=== PATIENT | female | born 1980 | race Two or more races ===

== ENCOUNTER 2017-04-29 00:26 | Inpatient (IN) | payer OTHER ==
[~2017-04-29] VITALS: Ht 160 cm; Wt 71.7 kg
[~2017-04-29 00:26] MED LIST: CEPH-570 PO; IBUP-1955 PO; PHEN-705 PO
[2017-04-29 03:00] VITALS: BP 90/54
--- NOTE | 2017-04-29 03:00 | NUR ---
MS RN NOTE: RECEIVED PATIENT FROM [facility] [address] [facility], NO ACUTE DISTRESS NOTED. BREATHING EVEN AND UNLABORED, NO SOB NOTED. IV TO LAC #[address] REVIEWED HOME MEDICATIONS. ORIENTED PATIENT TO ROOM AND USE OF CALL LIGHT. BED LOCKED AND IN LOWEST POSITION, CALL LIGHT IN REACH. WILL CONTINUE TO MONITOR. SEXUAL [employer]AULT SOCIAL WORKER MD CALLED AND INFORMED THAT PATIENT IS ON FLOOR. WILL CONTINUE TO MONITOR.
[2017-04-29] MEDS ORDERED: ZOLPIDEM TARTRATE 5 MG TABLET PO PRN (04:00)
[2017-04-29] MEDS ORDERED: MORPHINE SULFATE INJ 2 MG/ML DISP.SYRIN IV PRN (04:00)
[2017-04-29] MEDS ORDERED: Z GUARD REMEDY 2 OZ OINT TP PRN ×2 (04:00→18:30)
[2017-04-29] MEDS ORDERED: MAGNESIUM HYDROXIDE 30 ML UDC PO PRN (04:00)
[2017-04-29] MEDS ORDERED: HYDROCODONE/APAP 5/325MG 1 EACH TABLET ONE (04:30)
[2017-04-29] MEDS: HYDROCODONE/APAP 5/325MG 1 EACH TABLET PO PRN ×2 (04:36→20:20)
--- NOTE | 2017-04-29 04:45 | NUR ---
MS RN NOTE: PATIENT COMPLAINS OF PAIN TO VAGINAL AREA 11/08, NORCO 5/325MG 1 TAB ORAL GIVEN PER MD ORDER. WILL CONTINUE TO MONITOR.
--- NOTE | 2017-04-29 06:20 | NUR ---
MS RN NOTE: PATIENT RESTING IN BED, NO ACUTE DISTRESS NOTED. BREATHING EVEN AND UNLABORED, NO SOB NOTED. IV TO LAC #[address] BED LOCKED AND IN LOWEST POSITION, CALL LIGHT IN REACH. WILL ENDORSE TO DAY NURSE TO CONTINUE WITH PLAN OF CARE.
[2017-04-29 06:43] LABS: BASOPHILS % (AUTO) 0.1 % (0.0-2.0); EOSINOPHILS # (AUTO) 0.1 /CMM (0.0-0.7); EOSINOPHILS % (AUTO) 0.7 % (0.0-6.0); HEMATOCRIT 38 % (33-45); HEMOGLOBIN 12.8 g/dL (11.5-14.8); LYMPHOCYTES # (AUTO) 0.8 /CMM (0.8-4.8); LYMPHOCYTES % (AUTO) 3.7 % (20.0-44.0); MEAN CORPUSCULAR HEMOGLOBIN 31 PG (26.0-33.0); MEAN CORPUSCULAR HGB CONC 34 g/dl (31.0-36.0); MEAN CORPUSCULAR VOLUME 92 fL (82-100); MONOCYTES # (AUTO) 0.4 /CMM (0.1-1.30); NEUTROPHILS # (AUTO) 19.1 /CMM (1.8-8.9); NEUTROPHILS % (AUTO) 93.5 % (43.0-81.0); PLATELET COUNT (AUTO) 250 /CMM (150-450); RDW COEFFICIENT OF VARIATION 11.6 (11.5-15.0); RED BLOOD CELL COUNT(AUTO) 4.08 MIL/uL (4.0-5.2); WHITE BLOOD COUNT (AUTO) 20.4 K/uL (4.3-11.0)
[2017-04-29 07:10] LABS: CALCIUM, SERUM 8.5 mg/dL (8.5-10.1); CREATININE 0.8 mg/dL (0.6-1.3); MAGNESIUM 1.8 mg/dL (1.8-2.4); PHOSPHORUS 3.2 mg/dL (2.5-4.9)
[2017-04-29 07:19] LABS: POTASSIUM 3.3 mmol/L (3.5-5.1)
[2017-04-29 08:00] VITALS: BP 102/60
[2017-04-29] MEDS ORDERED: SULFAMETHOXAZOLE/TRIMETHOPRIM 10 ML in IV D5W 250 ML IV SCH (09:00)
[2017-04-29] MEDS: ACETAMINOPHEN 325 MG TABLET PO PRN (09:48)
[2017-04-29] MEDS: IV NS 0.9% 1,000 ML IV PRN ×2 (09:51→23:45)
[2017-04-29] MEDS: SULFAMETHOXAZOLE/TRIMETHOPRIM 10 ML in IV D5W 250 ML IV SCH ×3 (09:55→23:45)
--- NOTE | 2017-04-29 12:00 | NUR ---
RN NOTES RELAYED US TRANSVAGINAL RESULT TO DR. PANKAJ CASEY, ASKED IF MD WANTS TO ORDER SURGICAL CONSULT. PER MD, ORDER OB CONSULT WITH DR. VALENZUELA INSTEAD. ORDER NOTED AND CARRIED OUT.
[2017-04-29] MEDS ORDERED: POTASSIUM CHLORIDE 20 MEQ TAB.PRT.SR PO SCH (12:30)
[2017-04-29] MEDS: ONDANSETRON HCL/PF 4 MG/2 ML VIAL IVP PRN (13:45)
[2017-04-29] MEDS ORDERED: POTASSIUM CHLORIDE 20 MEQ TAB.PRT.SR PO ONE (14:00)
--- NOTE | 2017-04-29 14:01 | NUR ---
RN NOTES UNABLE TO PULL POTASSIUM CHLORIDE FROM OMNICELL D/T MEDICATION PAST DUE, RE-ORDERED.
[2017-04-29] MEDS ORDERED: ASPIRIN/ACETAMINOPHEN/CAFFEINE 1 EACH TABLET PO PRN (14:30)
[2017-04-29] MEDS ORDERED: MORPHINE SULFATE INJ 4 MG/ML DISP.SYRIN IV PRN (15:00)
[2017-04-29 15:49] LABS: BAND % (MANUAL) 6 % (0.0-5.0); EOSINOPHILS % (MANUAL) 1 % (0-4); LYMPHOCYTES % (MANUAL) 4 % (16-48); MONOCYTES % (MANUAL) 1 % (0-11.0); NEUTROPHILS % (MANUAL) 88 (42-76)
[2017-04-29 16:00] VITALS: BP 102/61
[2017-04-29] MEDS: IBUPROFEN 600 MG TABLET PO PRN (16:46)
--- NOTE | 2017-04-29 18:24 | NUR ---
RN NOTES PATIENT ALERT AND ORIENTED X4, ASSISTED TO RESTROOM, C/O BURNING PAIN WHEN VOIDING, PER PATIENT WHEN URINE TOUCHES THE LABIA. OFFERED Z-GUARD, PATIENT APPLIED BARRIER CREAM. REFUSED PAIN MEDICINE AT THIS TIME. PATIENT CONNECTED BACK TO IVF, ONGOING AND TOLERATING AT THIS TIME. FAMILY AT BEDSIDE. ALL NEEDS ATTENDED AND MET. CALL LIGHT WITHIN REACH, WILL ENDORSE TO VARITYPE OPERATOR FOR HANNAH.
--- NOTE | 2017-04-29 19:30 | NUR ---
MS RN NOTE: PATIENT RESTING IN BED, NO ACUTE DISTRESS NOTED. BREATHING EVEN AND UNLABORED, NO SOB NOTED. IV TO LAC #[address], INFUSING NS AT 75 ML/HR. BED LOCKED AND IN LOWEST POSITION, CALL LIGHT IN REACH. WILL CONTINUE TO MONITOR.
[2017-04-29 20:00] VITALS: BP 111/68
--- NOTE | 2017-04-29 20:30 | NUR ---
MS RN NOTE: PATIENT COMPLAINS OF PAIN TO VAGINAL AREA 11/08, NORCO 5/325MG 1 TAB ORAL GIVEN PER MD ORDER. WILL CONTINUE TO MONITOR.
--- NOTE | 2017-04-30 06:05 | NUR ---
MS RN NOTE: PATIENT RESTING IN BED, NO ACUTE DISTRESS NOTED. BREATHING EVEN AND UNLABORED, NO SOB NOTED. IV TO LAC #[address], INFUSING NS AT 75 ML/HR. BED LOCKED AND IN LOWEST POSITION, CALL LIGHT IN REACH. WILL ENDORSE TO DAY NURSE TO CONTINUE WITH PLAN OF CARE.
[2017-04-30 06:48] LABS: CALCIUM, SERUM 8.4 mg/dL (8.5-10.1); CREATININE 0.8 mg/dL (0.6-1.3); POTASSIUM 3.6 mmol/L (3.5-5.1)
[2017-04-30 06:49] LABS: CHOLESTEROL 138 mg/dL (<200); HDL CHOLESTEROL 51 mg/dL (40-60); LDL 72 mg/dL (0-99); TRIGLYCERIDES 89 mg/dL (30-150)
--- NOTE | 2017-04-30 07:30 | NUR ---
MS/RN Patient received Patient received from night nurse. Complaining of labia pain and nausea, unable to get comfortable. Pain medication offered, but patient reluctant to take. Requesting to hold of any medication at this time. Will continue to monitor and ensure safety.
[2017-04-30 08:00] VITALS: BP 91/56
[2017-04-30] MEDS: SULFAMETHOXAZOLE/TRIMETHOPRIM 10 ML in IV D5W 250 ML IV SCH ×3 (08:00→23:08)
[2017-04-30] MEDS: ONDANSETRON HCL/PF 4 MG/2 ML VIAL IVP PRN ×2 (09:03→18:07)
[2017-04-30 09:04] LABS: BASOPHILS % (AUTO) 0.3 % (0.0-2.0); EOSINOPHILS # (AUTO) 0.2 /CMM (0.0-0.7); EOSINOPHILS % (AUTO) 1.2 % (0.0-6.0); HEMATOCRIT 36 % (33-45); HEMOGLOBIN 12.4 g/dL (11.5-14.8); LYMPHOCYTES # (AUTO) 1.3 /CMM (0.8-4.8); LYMPHOCYTES % (AUTO) 8.7 % (20.0-44.0); MEAN CORPUSCULAR HEMOGLOBIN 31 PG (26.0-33.0); MEAN CORPUSCULAR HGB CONC 35 g/dl (31.0-36.0); MEAN CORPUSCULAR VOLUME 91 fL (82-100); MONOCYTES # (AUTO) 0.8 /CMM (0.1-1.30); MONOCYTES % (AUTO) 5.2 % (2.0-12.0); NEUTROPHILS # (AUTO) 12.9 /CMM (1.8-8.9); NEUTROPHILS % (AUTO) 84.6 % (43.0-81.0); PLATELET COUNT (AUTO) 219 /CMM (150-450); RDW COEFFICIENT OF VARIATION 11.6 (11.5-15.0); RED BLOOD CELL COUNT(AUTO) 3.96 MIL/uL (4.0-5.2); WHITE BLOOD COUNT (AUTO) 15.2 K/uL (4.3-11.0)
--- NOTE | 2017-04-30 11:00 | NUR ---
MS/RN S/B Shaan Neal No new orders, awaiting consult from Dr Groves.
[2017-04-30] MEDS: ACETAMINOPHEN 325 MG TABLET PO PRN (12:04)
--- NOTE | 2017-04-30 12:10 | NUR ---
MS/RN Dr Groves Call placed to Dr Groves, stated that she would be in to see patient following emergency surgery.
[2017-04-30] MEDS: HYDROCODONE/APAP 5/325MG 1 EACH TABLET PO PRN (13:49)
[2017-04-30] MEDS ORDERED: oxyCODONE/APAP (5/325 MG) 1 UDTAB TABLET PO PRN (14:30)
[2017-04-30] MEDS ORDERED: HYDROMORPHONE 1 MG/1 ML DISP.SYRIN IV PRN ×2 (15:00→15:30)
[2017-04-30] MEDS ORDERED: FEE PK DOSING 1 MIN EA MC ONE (15:22)
--- NOTE | 2017-04-30 15:30 | NUR ---
MS/RN S/P I&D S/P I&D labia abscess, small amount of pus drained. Patient to be encouraged to ambulate when comfortable to allow further pus to drain. To alternate warm compresses with ice packs.
--- NOTE | 2017-04-30 15:45 | NUR ---
MS/RN Orders New orders from Dr Groves: -gentamicin 80mg IV q8 hours -flagyl 250mg PO BID -dilaudid 1-2mg IV q2 hours -CBC
[2017-04-30 16:00] VITALS: BP 102/65
[2017-04-30] MEDS: IV NS 0.9% 1,000 ML IV PRN (16:41)
--- NOTE | 2017-04-30 17:30 | NUR ---
MS/RN Rounds Patient now more comfortable, states relief since I&D.
[2017-04-30] MEDS: IBUPROFEN 600 MG TABLET PO PRN (18:07)
[2017-04-30] MEDS: GENTAMICIN 80 MG in IV D5W 50 ML IV SCH (18:07)
--- NOTE | 2017-04-30 19:30 | NUR ---
RN NOTE; RECEIVED PT IN BED W/ FAMILY AT THE BED SIDE. BREATHING EVENLY. STATED PAIN IS MUCH BETTER . STILL W/ ON AND OFF NAUSEA. W/ MINIMAL DISCHARGES ON THE AREA. NEEDS ATTENDED. BED LOW MILAN. CALL LIGHT WITHIN REACH. WILL CONT TO MONITOR,
--- NOTE | 2017-04-30 19:30 | NUR ---
MS/RN End note No changes at this time, all needs attended, at bedside and updated as to plan of care. Will endorse to police shift commander.
[2017-04-30 20:00] VITALS: BP 111/69
[2017-04-30] MEDS: METRONIDAZOLE 250 MG TABLET PO SCH (21:35)
[2017-05-01] MEDS: GENTAMICIN 80 MG in IV D5W 50 ML IV SCH ×3 (00:26→16:18)
--- NOTE | 2017-05-01 05:44 | NUR ---
ASSISTED PT TO AMBULATE IN THE HALLWAY. TOLERATED WELL.
--- NOTE | 2017-05-01 06:29 | NUR ---
PT IN BED DOZING INTERMITTENTLY. BREATHING EVENLY. NO ACUTE EVENT DURING THE NIGHT, NO OBVIOUS DISCHARGES FROM THE LABIA. PAIN TOLERATED W/ NON-PHARMACOLOGICAL MEASURES, NO C/O N/V. NEEDS MET. CALL LIGHT WITHIN REACH. WILL CONT TO MONITOR , AND WILL ENDORSE TO AM SHIFT FOR HANNAH.
[2017-05-01 06:32] LABS: BASOPHILS % (AUTO) 0.2 % (0.0-2.0); EOSINOPHILS # (AUTO) 0.1 /CMM (0.0-0.7); EOSINOPHILS % (AUTO) 0.8 % (0.0-6.0); HEMATOCRIT 37 % (33-45); HEMOGLOBIN 12.4 g/dL (11.5-14.8); LYMPHOCYTES # (AUTO) 1.6 /CMM (0.8-4.8); LYMPHOCYTES % (AUTO) 11.4 % (20.0-44.0); MEAN CORPUSCULAR HEMOGLOBIN 31 PG (26.0-33.0); MEAN CORPUSCULAR HGB CONC 34 g/dl (31.0-36.0); MEAN CORPUSCULAR VOLUME 91 fL (82-100); MONOCYTES # (AUTO) 0.7 /CMM (0.1-1.30); MONOCYTES % (AUTO) 4.8 % (2.0-12.0); NEUTROPHILS # (AUTO) 11.3 /CMM (1.8-8.9); NEUTROPHILS % (AUTO) 82.8 % (43.0-81.0); PLATELET COUNT (AUTO) 259 /CMM (150-450); RDW COEFFICIENT OF VARIATION 11.4 (11.5-15.0); WHITE BLOOD COUNT (AUTO) 13.7 K/uL (4.3-11.0)
[2017-05-01 06:53] LABS: CALCIUM, SERUM 8.8 mg/dL (8.5-10.1); CREATININE 0.8 mg/dL (0.6-1.3); POTASSIUM 3.8 mmol/L (3.5-5.1)
--- NOTE | 2017-05-01 07:25 | NUR ---
RECEIVED REPORT AT THE BEDSIDE. PATIENT RESTING IN BED COMFORTABLY. NO SOB OR DISTRESS NOTED AT THIS TIME. PATIENT DENIES SIGNIFICANT PAIN., NEW ICE PACK GIVEN. BED IS IN A LOW POSITION, CALL LIGHT WITHIN PATIENT REACH. WILL CONTINUE TO MONITOR.
[2017-05-01 08:00] VITALS: BP 104/67
[2017-05-01] MEDS: METRONIDAZOLE 250 MG TABLET PO SCH (08:13)
[2017-05-01] MEDS: SULFAMETHOXAZOLE/TRIMETHOPRIM 10 ML in IV D5W 250 ML IV SCH ×2 (08:32→16:56)
[2017-05-01 11:44] LABS: BAND % (MANUAL) 2 % (0.0-5.0); LYMPHOCYTES % (MANUAL) 9 % (16-48); NEUTROPHILS % (MANUAL) 89 (42-76)
[2017-05-01 16:00] VITALS: BP 100/68
[2017-05-01] MEDS ORDERED: SULF1TAB48 PO (17:23)
[2017-05-01] MEDS ORDERED: METR500T PO (17:23)
[2017-05-01] MEDS ORDERED: OXYC-128 PO (17:23)
--- NOTE | 2017-05-01 19:12 | NUR ---
PT IS READY FOR DC. ALL PAPERWORK SIGNED AND BELONGINGS ACCOUNTED FOR. IV REMOVED AND PRESSURE APPLIED. NO BLEEDING NOTED AT THE SITE. WILL ENDORSE FOR HANNAH. WILL DISCHARGE ONCE ARRIVES TO MEN'S AND BOYS' CLOTHING SALESPERSON THE PATIENT.
--- NOTE | 2017-05-01 19:35 | NUR ---
MS RN NOTE: PATIENT READY FOR DISCHARGE, DISCHARGE PAPERWORK SIGNED AND WITH PATIENT, COMPLETED WITH DAY SHIFT. IV ALREADY REMOVED. ID BAND REMOVED. PATIENT ON FLOOR TO TAKE HOME. PATIENT WHEELED OFF UNITS WITH DREDGE MASTER WITH ALL BELONGINGS, NO ACUTE DISTRESS NOTED.
== END 2017-05-01 19:30 | disposition home or self-care (01) | DRG 518 ==
LOC: MEDSG2 02:36
PROVIDERS: ADMIT Nurse Practitioner Acute Care; ATTEND Nurse Practitioner Acute Care
PROC: 0U9MXZZ Drainage of Vulva, External Approach (ICD-10-PCS; principal; 2017-04-30)
DX: N76.4 Abscess of vulva (principal); E87.6 Hypokalemia; D72.829 Elevated white blood cell count, unspecified; R10.9 Unspecified abdominal pain
CPT/HCPCS: 36415; 76856-TC; 80048-TC; 80061-TC; 83735-TC; 84100-TC; 85025-TC; 87081-TC; A6253; J1580; J2270; J2405; J3490; J7030; J7060; Z7610